=== PATIENT | male | born 1980 | race Caucasian/White ===

== ENCOUNTER 2022-12-29 13:46 | Outpatient (REF) | payer BC, SELFPAY ==
[2022-12-29 15:38] LABS: Calculated LDL 94 mg/dL (<100); Cholesterol 179 mg/dL (<200); HDL Cholesterol 61 mg/dL (40-60); Triglyceride 121 mg/dL (<150)
== END 2022-12-29 13:47 | disposition home or self-care (01) ==
LOC: NCHCN 13:46
PROVIDERS: PCP Nurse Practitioner Family; Visit Provider Nurse Practitioner Family
DX: Z13.220 Encounter for screening for lipoid disorders (principal)
CPT/HCPCS: 80061